=== PATIENT | female | born 1950 | race Caucasian/White ===

== ENCOUNTER 2017-02-13 21:03 | Inpatient (IN) | payer OTHER, MEDICAID ==
[~2017-02-13] VITALS: Ht 170.2 cm; Wt 140.6 kg
--- NOTE | 2017-02-13 21:03 | NUR ---
Patient was BIBA and taken to bed 06 via gurney per EMS.
[2017-02-13] MEDS ORDERED: NACL 0.9% 1,000 ML IV ONE ×2 (21:14→22:15)
[2017-02-13] MEDS ORDERED: ONDANSETRON 4 MG/2 ML VIAL IVP ONE (21:15)
[2017-02-13] MEDS ORDERED: MORPHINE SULFATE 4 MG/ML SYR IVP ONE (21:15)
[2017-02-13] MEDS ORDERED: ACETAMINOPHEN 325 MG TAB ONE (21:39)
[2017-02-13 21:42] VITALS: BP 117/63
--- NOTE | 2017-02-13 21:58 | NUR ---
66Y F BIBA C/O SOB X 1 DAY WHILE AT HOME. PT STATES SHE WAS SHAKING, DID NOT LOSE CONSCIOUSNESS AND FEELS NAUSEAS WITH LOW BACK PAIN. HX: HTN ALLERGIES SULFA
[2017-02-13] MEDS ORDERED: LEVOFLOXACIN 750 MG/D5W PREMIX 150 ML IV ONE (22:00)
--- NOTE | 2017-02-13 22:14 | NUR ---
Per Lab, Lactic acid is 2.6. I made this known to Dr. Burks.
[2017-02-13] MEDS ORDERED: HYDROcodone/APAP 5/325 MG 1 TAB TAB PO PRN (22:30)
[2017-02-13] MEDS ORDERED: ONDANSETRON 4 MG/2 ML VIAL IVP PRN (22:30)
[2017-02-13] MEDS ORDERED: LORazepam 2 MG/ML VIAL IVP PRN (22:30)
[2017-02-13] MEDS ORDERED: MORPHINE SULFATE 2 MG/ML SYR IVP PRN (22:30)
[2017-02-13] MEDS ORDERED: ACETAMINOPHEN 325 MG TAB PO PRN (22:30)
--- NOTE | 2017-02-13 22:40 | NUR ---
Patient will be admitted to care of DR STRICKLAND. Admited to TELE 124B. Will go to room 124B. Belongings list completed. Report to GIANNA WHEELER.
--- NOTE | 2017-02-13 23:00 | NUR ---
ADMITTED 66 YEAR OLD FEMALE FROM ER. PT AOX4. PT STABLE. PT DENIES PAIN. PT AMBULATORY. PT HAS IV TO RIGHT HAND G 20; ASYMPTOMATIC, PATENT AND INTACT. PT CAME WITH ABS FROM ER. PT'S SKIN IS INTACT. ORIENTED PT TO ROOM AND SURROUNDINGS AND USE OF CALL LIGHT. EXPLAINED PLAN OF CARE TO PT AND SHE VERBALIZES UNDERSTANDING. WILL CONTINUE TO MONITOR PT.
[2017-02-13] MEDS: NACL 0.9% 1,000 ML IV SCH (23:06)
[2017-02-13] MEDS ORDERED: LOSARTAN POTASS50 MG PO (23:40)
[2017-02-13] MEDS ORDERED: CELEBREX200 MG PO (23:40)
[2017-02-13] MEDS ORDERED: NEURONTIN300 MG PO (23:40)
[2017-02-14] VITALS: BP 117/64
--- NOTE | 2017-02-14 01:30 | NUR ---
PT SIGNED CONSENT FOR CT ABDOMEN/PELVIS. PT HAS SCDS ON. WILL CONTINUE TO MONITOR PT.
--- NOTE | 2017-02-14 03:51 | NUR ---
PT AMBULATED TO THE RESTROOM WITH STEADY GAIT. PT BACK IN BED NOW. WILL CONTINUE TO MONITOR PT.
[2017-02-14 04:00] VITALS: BP 121/78
--- NOTE | 2017-02-14 07:00 | NUR ---
ENDORSED PLAN OF CARE TO DAY SHIFT NURSE. PT IN STABLE CONDITION.
--- NOTE | 2017-02-14 07:05 | NUR ---
RECEIVED REPORT FROM NIGHT RN. PT RESTING IN BED. AAOX4. NO S/S OF ACUTE DISTRESS. PT DENIES PAIN. IV SITE PATENT AND INTACT. PT STATES SHE HAS DRIBBLING AND RETENTION WHEN SHE URINATES. CALL LIGHT WITHIN REACH. SAFETY MEASURES ENSURED. WILL CONTINUE TO MONITOR.
[2017-02-14 07:49] VITALS: BP 121/59
--- NOTE | 2017-02-14 09:07 | NUR ---
PATIENT HAS BEEN SCREENED AND CATEGORIZED HIGH NUTRITION RISK. PATIENT WILL BE SEEN WITHIN 1-2 DAYS OF ADMISSION. 02/14/17-02/15/[address]
[2017-02-14] MEDS: LACTOBACILLUS RHAMNOSUS GG 1 EACH CAP PO SCH (09:53)
--- NOTE | 2017-02-14 09:58 | NUR ---
PT TOLERATED AM MEDS WELL. NO S/S OF ACUTE DISTRESS. PT DENIES PAIN. IV SITE PATENT AND INTACT. DR. LANGFORD AND FAMILY AT BEDSIDE.
--- NOTE | 2017-02-14 11:28 | NUR ---
PT RESTING IN BED. NO S/S OF ACUTE DISTRESS. PT DENIES PAIN. CALL LIGHT WITHIN REACH. SAFETY MEASURES ENSURED. WILL CONTINUE TO MONITOR.
[2017-02-14 12:00] VITALS: BP 122/56
[2017-02-14] MEDS ORDERED: LACTOBACILLUS RHAMNOSUS GG 1 EACH CAP PO SCH (12:00)
--- NOTE | 2017-02-14 13:09 | NUR ---
02/14/17 RD INITIAL ASSESSMENT COMPLETED PLEASE REFER TO NUTRITION ASSESSMENT UNDER CARE ACTIVITY FOR ESTIMATED NUTRITIONAL NEEDS. 1. CONTINUE REGULAR DIET 2. RD TO FOLLOW-UP 2-3 DAYS; HIGH RISK AVE [address]
--- NOTE | 2017-02-14 14:09 | NUR ---
GRAZYNA RIVERA CM DIR VALDEZ RECEIVED VOICEMAIL FROM [facility] REQUESTING FOR REVIEW. INITIAL REVIEW SENT TO [facility] FAX# [phone] GRAZYNA BUCHANAN # [phone] Addendum: 02/14/17 at 1428 by Cheyanne Ann CM GRAZYNA DIAZ # [phone] FAX# [phone] Addendum: 02/14/17 at 1537 by Cheyanne Ann CM SPOKE WITH GRAZYNA DIAZ # [phone] AND GAVE HER A VERBAL CLINICAL UPDATE ON THE PATIENT. PER GRAZYNA BROTHERS, PATIENT'S ADMISSION IS APPROVED FOR 3 DAYS AUTH# [id number]. PER GRAZYNA BROTHERS, FOR ANY FURTHER REVIEWS AND DISCHARGE NEEDS TO SEND TO [facility] SPICER FAX# [phone] # [phone]
--- NOTE | 2017-02-14 14:56 | NUR ---
PT RESTING IN BED. NO S/S OF ACUTE DISTRESS. PT DENIES PAIN. CALL LIGHT WITHIN REACH. SAFETY MEASURES ENSURED. WILL CONTINUE TO MONITOR.
[2017-02-14 16:00] VITALS: BP 122/58
--- NOTE | 2017-02-14 16:39 | NUR ---
PT RESTING IN BED. NO S/S OF ACUTE DISTRESS. PT DENIES PAIN. CALL LIGHT WITHIN REACH. SAFETY MEASURES ENSURED. WILL CONTINUE TO MONITOR.
[2017-02-14] MEDS: NACL 0.9% 1,000 ML IV SCH (17:56)
--- NOTE | 2017-02-14 19:18 | NUR ---
ENDORSED PLAN OF CARE TO NIGHT RN. PT REMAINS IN STABLE CONDITION.
--- NOTE | 2017-02-14 19:25 | NUR ---
RECEIVED REPORT FROM SUMMER BARBOUR. INITIAL ASSESSMENT COMPLETED. PT AOX4. PT STABLE. PT LAYING IN BED. PT DENIES PAIN. PT AMBULATORY. PT HAS IV TO RIGHT HAND G 20; ASYMPTOMATIC, PATENT AND INTACT. PT'S SKIN IS INTACT. ORIENTED PT TO ROOM AND SURROUNDINGS AND USE OF CALL LIGHT. EXPLAINED PLAN OF CARE TO PT AND SHE VERBALIZES UNDERSTANDING. WILL CONTINUE TO MONITOR PT.
[2017-02-14 20:00] VITALS: BP 120/73
[2017-02-14] MEDS ORDERED: LEVOFLOXACIN 500 MG/D5W PREMIX 100 ML IV SCH (21:00)
[2017-02-14] MEDS ORDERED: GABAPENTIN 300 MG CAP PO SCH (21:00)
[2017-02-14] MEDS: CELECOXIB 100 MG CAP PO SCH (21:27)
--- NOTE | 2017-02-14 21:31 | NUR ---
PT TOLERATED 2100 MEDS WELL, CALL LIGHT WITHIN REACH.
[2017-02-15] VITALS: BP 116/57
--- NOTE | 2017-02-15 00:25 | NUR ---
PT COMPLAINING OF IV LOCATION HURTING ANS SWELLING. IV DISCONTINUED WITH TIP INTACT. STARTED A NEW IV ON LEFT FOREARM G 22; ASYMPTOMATIC, PATENT AND INTACT INFUSING FLUIDS WELL. PT TOLERATED IT WELL. WILL CONTINUE TO MONITOR PT.
--- NOTE | 2017-02-15 02:03 | NUR ---
PT SLEEPING AT THIS TIME. NO SIGNS OF DISTRESS/DISCOMFORT NOTED. IV INFUSING FLUIDS WELL. WILL CONTINUE TO MONITOR PT.
[2017-02-15 04:00] VITALS: BP 126/71
--- NOTE | 2017-02-15 05:30 | NUR ---
PT REQUESTING A BLANKET. ALL NEEDS MET AT THIS TIME. WILL CONTINUE TO MONITOR PT.
--- NOTE | 2017-02-15 07:23 | NUR ---
ENDORSED PLAN OF CARE TO DAY SHIFT NURSE. PT IN STABLE CONDITION.
--- NOTE | 2017-02-15 07:25 | NUR ---
RECEIVED REPORT FROM NIGHT RN. PT RESTING IN BED. AAOX4. NO S/S OF ACUTE DISTRESS. PT DENIES PAIN. IV SITE PATENT AND INTACT. TELE BOX IN PLACE. CALL LIGHT WITHIN REACH. SAFETY MEASURES ENSURED. WILL CONTINUE TO MONITOR.
[2017-02-15 08:00] VITALS: BP 116/57
[2017-02-15] MEDS ORDERED: LOSARTAN 50 MG TAB PO SCH (09:00)
--- NOTE | 2017-02-15 09:45 | NUR ---
AM MEDS GIVEN WITH EDUCATION. PT TOLERATED WELL. NO S/S OF ACUTE DISTRESS. PT DENIES PAIN. CALL LIGHT WITHIN REACH. SAFETY MEASURES ENSURED. WILL CONTINUE TO MONITOR.
[2017-02-15] MEDS: LACTOBACILLUS RHAMNOSUS GG 1 EACH CAP PO SCH (09:52)
[2017-02-15] MEDS: CELECOXIB 100 MG CAP PO SCH (09:53)
--- NOTE | 2017-02-15 11:39 | NUR ---
PT RESTING IN BED. NO S/S OF ACUTE DISTRESS. PT DENIES PAIN. CALL LIGHT WITHIN REACH. SAFETY MEASURES ENSURED. WILL CONTINUE TO MONITOR.
[2017-02-15 12:00] VITALS: BP 120/57
--- NOTE | 2017-02-15 12:12 | NUR ---
CM NOTE CONCURRENT REVIEW SENT TO [facility] GRAZYNA SPICER FAX# [phone] PH# [phone]
[2017-02-15 13:00] VITALS: BP 120/57
--- NOTE | 2017-02-15 14:14 | NUR ---
PT RESTING IN BED. NO S/S OF ACUTE DISTRESS. PT MADE AWARE OF DISCHARGE. PT VERBALIZED UNDERSTANDING. CALL LIGHT WITHIN REACH. SAFETY MEASURES ENSURED. WILL CONTINUE TO MONITOR.
[2017-02-15] MEDS: NACL 0.9% 1,000 ML IV SCH (14:27)
[2017-02-15] MEDS ORDERED: LEVAQUIN750 MG PO (15:09)
[2017-02-15 16:00] VITALS: BP 115/45
--- NOTE | 2017-02-15 17:06 | NUR ---
PT CLEARED FOR DISCHARGE. DISCHARGE INSTRUCTIONS PROVIDED. PT VERBALIZED UNDERSTANDING. NO S/S OF ACUTE DISTRESS. IV TAKEN OUT. TIP INTACT. AWAITING RIDE FROM SON.
--- NOTE | 2017-02-15 17:10 | NUR ---
PT TAKEN OFF UNIT. NO S/S OF ACUTE DISTRESS. PT DENIES PAIN.
--- NOTE | 2017-02-16 15:18 | NUR ---
GRAZYNA NOTE RECEIVED FAX FROM [facility] REQUESTING FOR DISCHARGE SUMMARY. [facility]# [phone] ATTN: GRAZYNA MONGE # [phone]
== END 2017-02-15 17:10 | disposition home or self-care (01) | DRG 871 ==
LOC: MED 21:03 → MTU 22:30
PROVIDERS: ADMIT Family Medicine; ATTEND Family Medicine
DX: A41.9 Sepsis, unspecified organism (principal); N17.0 Acute kidney failure with tubular necrosis; N12 Tubulo-interstitial nephritis, not specified as acute or chronic; Z68.42 Body mass index [BMI] 45.0-49.9, adult; N39.0 Urinary tract infection, site not specified; E66.01 Morbid (severe) obesity due to excess calories; M19.90 Unspecified osteoarthritis, unspecified site; N32.81 Overactive bladder; E87.8 Other disorders of electrolyte and fluid balance, not elsewhere classified; E11.40 Type 2 diabetes mellitus with diabetic neuropathy, unspecified; Z96.653 Presence of artificial knee joint, bilateral; I10 Essential (primary) hypertension; Z88.2 Allergy status to sulfonamides; Z79.899 Other long term (current) drug therapy; Z56.0 Unemployment, unspecified

== ENCOUNTER 2022-01-01 20:32 | Emergency (ER) | payer MEDICAID, OTHER ==
[~2022-01-01] VITALS: Ht 170.2 cm; Wt 110.7 kg
[~2022-01-01 20:32] MED LIST: CELE200C PO; GABA300C PO; LEVO750T2 PO; LOSA50TA66 PO
[2022-01-01 21:04] VITALS: BP 128/58
--- NOTE | 2022-01-01 21:09 | NUR ---
PT SENT TO LOBBY VIA W/C WITH SON
--- NOTE | 2022-01-01 22:38 | NUR ---
71 Y/O FEMALE BIB FAMILY, C/O BACK PAIN. PATIENT PRESENTS TO ED WITH LOWER BACK PAIN. PT STATES SHE HAS A CHRONIC CONDITION AND EVERY SO OFTEN SHE WILL HAVE A "FLARE UP" OF PAIN AND SPASMS. PT STATES WHEN SHE HAS THESE SPASMS SHE WILL NORMALLY GET "A SHOT" IN THE BACK; PT DOES NOT KNOW THE NAME OF MED IN THE SHOT. DENIES N/V/D; SKIN IS PINK/WARM/DRY; AAOX4 WITH EVEN AND STEADY GAIT BUT UNSTEADY DUE TO THE PAIN; LUNGS CLEAR BL; HR EVEN AND REGULAR; PT DENIES ANY FEVER, CP, SOB, OR COUGH AT THIS TIME; PATIENT STATES PAIN OF 9/10 AT THIS TIME; VSS; PATIENT POSITIONED FOR COMFORT; HOB ELEVATED; BEDRAILS UP X2; BED DOWN. ER MD MADE AWARE OF PT STATUS. HX: ARTHRITIS AND OSTEOPEDIS IN HER SPINE ALL: SULFA MEDS: TRAMADOL AND IBUPROFEN
--- NOTE | 2022-01-01 22:40 | NUR ---
ER AT BEDSIDE
[2022-01-01] MEDS ORDERED: ACET-8386 PO (22:54)
[2022-01-01] MEDS ORDERED: CYCL-711 PO (22:54)
[2022-01-01] MEDS ORDERED: MORPHINE SULFATE 4 MG/ML SYR IM ONE (22:55)
[2022-01-01] MEDS ORDERED: KETOROLAC 30 MG/ML VIAL IM ONE (22:55)
[2022-01-01] MEDS ORDERED: CEPH-588 PO (23:17)
[2022-01-01] MEDS ORDERED: cefTRIAXone 1,000 MG in LIDOCAINE MPF 1% 2.1 ML IM ONE (23:20)
--- NOTE | 2022-01-01 23:20 | NUR ---
DISCUSSING RESULTS WITH PT
[2022-01-01] MEDS ORDERED: LIDOCAINE MPF 1% 5 ML ONE (23:21)
[2022-01-01] MEDS ORDERED: cefTRIAXone 1,000 MG VIAL ONE (23:21)
[2022-01-01 23:40] VITALS: BP 128/58
--- NOTE | 2022-01-01 23:41 | NUR ---
Patient discharged with v/s stable. Written and verbal after care instructions given and explained. Patient alert, oriented and verbalized understanding of instructions. Ambulatory with steady gait. All questions addressed prior to discharge. ID band removed. Patient advised to follow up with PMD. Rx of HYDROCODONE/ACETAMINOPHEN, CEPHALEXIN, AND CYCLOBENZAPRINE given. Patient educated on indication of medication including possible reaction and side effects. Opportunity to ask questions provided and answered. VSS, A/OX4, AMBULATORY, UNLABORED BREATHING, AND CALM DEMEANOR.
== END 2022-01-01 23:35 | disposition home or self-care (01) ==
LOC: MED 20:32
DX: M54.41 Lumbago with sciatica, right side (principal); N39.0 Urinary tract infection, site not specified; M54.6 Pain in thoracic spine; I10 Essential (primary) hypertension; Z90.49 Acquired absence of other specified parts of digestive tract; Z98.890 Other specified postprocedural states; Z79.2 Long term (current) use of antibiotics; Z79.891 Long term (current) use of opiate analgesic; Z79.899 Other long term (current) drug therapy; Z88.2 Allergy status to sulfonamides
CPT/HCPCS: 81002; 87086; 96372; 99284; J0696; J1885; J2001; J2270